=== PATIENT | female | born 1980 | race Caucasian/White ===

== ENCOUNTER 2022-12-25 02:03 | Outpatient (CLI) | payer BC, SELFPAY ==
--- NOTE | 2022-12-25 16:00 | DI.MAMMO_ITS ---
Exam(s) MAMMO SCREENING EXAM: MAMMO SCREENING CLINICAL HISTORY: PREVENTIVE [facility] Z00.00, SCREENING FOR BREAST CANCER. TECHNIQUE: Bilateral full field digital CC and MLO mammographic images were obtained with 3D tomosyn thesis and utilizing computer aided detection (CAD). COMPARISON: None. This is a baseline mammogram on this 42-year-old patient. FINDINGS: There are no CAD designations. There are no spiculated masses nor malignant appearing microcalcification groups. There is a small benign-appearing lymph node in the upper-outer quadrant of the right breast. There is no significant architectural distortion nor skin thickening-retraction. IMPRESSION: No radiographic evidence of malignancy. BI-RADS Category 2 - Benign Findings Breast Density - Category B - Scattered areas of fibroglandular density Breast density Category C or D implies that the patient has dense breast tissue. Dense breast tissue can make it harder to find cancer on a mammogram. Dense breast tissue is also associated with an incr eased risk of breast cancer. This information about the result of the mammogram report was provided to the patient to raise their awareness. Use this report when you speak with the patient about their risks for breast cancer, which includes their family history. At that time, you may recommend additional screening tests (Ultrasoun d or MRI) as these tests may add significant information. A negative radiographic report should not delay biopsy if a dominant or clinically suspicious mass is present. Up to ten percent of cancers are not identified on mammography. A negative report may reinforce clinical impression. Adenosis and dense breasts may obscure an underlying neoplasm. False positive reports average 6 to 10%. Patient will receive a letter notifying them of these results.
== END 2022-12-25 02:23 ==
PROVIDERS: Visit Provider Internal Medicine
DX: Z00.00 Encounter for general adult medical examination without abnormal findings (principal); Z12.31 Encounter for screening mammogram for malignant neoplasm of breast
CPT/HCPCS: 77063; 77067

== ENCOUNTER 2023-12-26 11:01 | Outpatient (REF) | payer BC, SELFPAY ==
[2023-12-26 19:21] LABS: Abs Immature Grans 0.01 10^3/uL (0.0-0.06); Absolute Basophil Count 0.05 10^3/uL (0.0-0.2); Absolute Eosinophil Count 0.16 10^3/uL (0.0-0.7); Absolute Lymphocyte Count 1.43 10^3/uL (1.2-3.4); Absolute Monocyte Count 0.57 10^3/uL (0.1-0.8); Absolute Neutrophil Count 4.41 10^3/uL (1.2-6.7); Basophils % 0.8; Eosinophils % 2.4; HCT 41.4 % (36.0-46.0); HGB 13.5 g/dL (11.2-15.7); Immature Grans % 0.2; Lymphocytes % 21.6; MCH 30.5 pg (27.0-33.0); MCHC 32.6 % (32.0-36.0); MCV 94 fL (80-95); MPV 11.4 fL (8.0-11.0); Monocytes % 8.6; Neutrophils % 66.4; Platelet Count 257 10^3/uL (130-400); RBC 4.42 10^6/uL (3.93-5.22); RDW 12.3 % (11.7-14.6); RDW-SD 42.6 fL; WBC 6.63 10^3/uL (4.4-10.8)
[2023-12-26 19:47] LABS: Iron 74 ug/dL (50-170); Total Iron Binding Capacity 334 ug/dL (250-450); Transferrin Sat 22 % (15-50)
[2023-12-26 20:10] LABS: Hemoglobin A1C 5.3 % (<5.7)
[2023-12-26 20:14] LABS: Vitamin D 25 Total 31.1 ng/mL (30-100)
[2023-12-26 21:10] LABS: ALT 25 U/L (14-59); AST 16 U/L (15-37); Albumin 3.7 g/dL (3.4-5.0); Alkaline Phosphatase 45 U/L (46-116); BUN 10 mg/dL (7-18); Bilirubin, Total 0.4 mg/dL (0.2-1.0); CREATININE 0.8 mg/dL (0.55-1.02); Chloride 104 mmol/L (98-107); Estimated GFR 92.54 (mL/min/1.73m2); Ferritin 27 ng/mL (8-252); Glucose 91 mg/dL (74-106); Potassium 4.5 mmol/L (3.5-5.1); Sodium 138 mmol/L (136-145); TSH (W/Ref FT4) 1.77 uIU/mL (0.36-3.74); Total Protein 6.9 g/dL (6.4-8.2); Vitamin B12 433 pg/mL (193-986)
== END 2023-12-26 11:02 | disposition home or self-care (01) ==
LOC: NCHCN 11:01
PROVIDERS: PCP Nurse Practitioner Family; Visit Provider Physician Assistant
DX: R53.83 Other fatigue (principal)
CPT/HCPCS: 80053; 82306; 82607; 82728; 83036; 83540; 83550; 84443; 85025

== ENCOUNTER 2024-02-04 17:41 | Outpatient (REF) | payer BC, SELFPAY ==
--- NOTE | 2024-02-04 16:00 | PAPFT_PTH ---
PATIENT: Nuvia Solares LOC: [facility]#:[id number] AGE/SX: 43/F ROOM: RE02/04/[address]: Linda Kaur : 1980 BED: DIS: 02/04/2024 SPEC #: [id number] RECD: 02/05/24 13:10 STATUS: VANDANA RESujatha #: [id number] FER: 02/04/24 16:[address]: Linda Kaur DEPT: [facility] Cytology RECD BY: Nisha Guerra ENTERED: 02/05/24 13:11 SP TYPE: PAPFT OTHR DR: Elias Lucero Tissues: 1 - CX/ENDOCX FOR PAP SMEARS Procedures: PAP THIN PREP/UVM Screening HPV DNA PROBE Comments: [id number]
== END 2024-02-04 17:42 | disposition home or self-care (01) ==
LOC: NCHCN 17:41
PROVIDERS: PCP Nurse Practitioner Family; Visit Provider Physician Assistant
DX: Z12.4 Encounter for screening for malignant neoplasm of cervix (principal); Z11.51 Encounter for screening for human papillomavirus (HPV)
CPT/HCPCS: 88142; 87624

== ENCOUNTER 2025-06-15 02:40 | Outpatient (CLI) | payer BC, SELFPAY ==
--- NOTE | 2025-06-15 | DI.MAMMO_ITS ---
Exam(s) MAMMO SCREENING EXAM: MAMMO SCREENING CLINICAL HISTORY: Screening, Z12.31; family h/o breast CA TECHNIQUE: Bilateral full field digital CC and MLO mammographic images were obtained with 3D tomosynthesis and utilizing computer aided detection (CAD). COMPARISON: Comparison is made with prior examinations. FINDINGS: Masses/Architectural Distortion: There is a new 6 mm nodule in the outer left breast 5.5 cm from the nipple. It is in the upper quadrant of the left breast on the MLO view. There are no areas of architectural distortion. Microcalcifications: No suspicious pleomorphic-type are seen. Skin Thickening/Nipple Retraction: None. IMPRESSION: 1. New 6 mm nodule in the upper outer quadrant of the left breast. 2. This should be further evaluated with spot compression views. Ultrasound may be indicated at that time. BI-RADS Category 0 - Incomplete: Need additional imaging evaluation Breast Density - Category B - There are scattered areas of fibroglandular density. Breast density Category C or D implies that the patient has dense breast tissue. Dense breast tissue can make it harder to find cancer on a mammogram. Dense breast tissue is also associated with an increased risk of breast cancer. This information about the result of the mammogram report was provided to the patient to raise their awareness. Use this report when you speak with the patient about their risks for breast cancer, which includes their family history. At that time, you may recommend additional screening tests (Ultrasound or MRI) as these tests may add significant information. A negative radiographic report should not delay biopsy if a dominant or clinically suspicious mass is present. Up to ten percent of cancers are not identified on mammography. A negative report may reinforce clinical impression. Adenosis and dense breasts may obscure an underlying neoplasm. False positive reports average 6 to 10%. Patient will receive a letter notifying them of these results.
== END 2025-06-15 03:00 ==
PROVIDERS: PCP Nurse Practitioner Family; Visit Provider Physician Assistant
DX: Z12.31 Encounter for screening mammogram for malignant neoplasm of breast (principal); R92.323 Mammographic fibroglandular density, bilateral breasts
CPT/HCPCS: 77063; 77067

== ENCOUNTER 2025-06-18 00:21 | Outpatient (CLI) | payer BC, SELFPAY ==
--- NOTE | 2025-06-18 | DI.MAMMO_ITS ---
Exam(s) MG MAMMO SCREEN CALL BACK UNI US BREAST LT COMPLETE EXAM: MG MAMMO SCREEN CALL BACK UNI-LEFT BREAST ULTRASOUND CLINICAL HISTORY: NEW 6 MM NODULE UPPER OUTER QUAD LEFT BREAST R92.8 ABNL MAMMO. TECHNIQUE: Unilateral LEFT BREAST spot mammographic images obtained with 3D tomosynthesisand utilizing computer aided detection (CAD). . Complete LEFT breast Ultrasound was also performed, including all 4 quadrants, the retroareolar region, and the ipsilateral axilla. COMPARISON: Prior mammograms were reviewed. This additional imaging was performed due to findings described on the recent screening mammogram of 06/15/2025. FINDINGS: DIAGNOSTIC MAMMOGRAM: Additional mammographic views performed todayrender this area less concerning. COMPLETE LEFT BREAST ULTRASOUND: Ultrasound performed today reveals a small benign-appearing finding at the 1 o'clock position which measures 4 x 2 mm wider than taller. Is difficult to determine this just part of her fibroglandular tissue pattern or small benign- appearing nodule such as hemorrhagic microcyst. 3 o'clock position measuring approximately 4 x 2 mm. It is difficult to determine if this is just part of her fibroglandular tissue or small benign- appearing nodular hemorrhagic microcyst.. There are no other focal ultrasound findings in all 4 quadrants of the left breast. Scanning of the ipsilateral axilla reveals no significant adenopathy. IMPRESSION: 1. Benign-appearing findings at the 1 o'clock and 3 o'clock positions as described above. One of these may or may not correspond to the finding described on the recent screening mammogram (which is less impressive on spot compression 3D mammographic spot view today). The patient forms me that she has a strong family history of breast cancer. Appropriate follow-up is repeat left breast imaging in 6 months, this to include repeat left breast mammogram and ultrasound. The patient was informed of these findings and recommendations by myself prior to leaving the department today. BI-RADS Category 3 - 6 month - Probably Benign Finding: Recommend follow-up mammography in 6 months Breast Density - Category B - There are scattered areas of fibroglandular density. Breast density Category C or D implies that the patient has dense breast tissue. Dense breast tissue can make it harder to find cancer on a mammogram. Dense breast tissue is also associated with an increased risk of breast cancer. This information about the result of the mammogram report was provided to the patient to raise their awareness. Use this report when you speak with the patient about their risks for breast cancer, which includes their family history. At that time, you may recommend additional screening tests (Ultrasound or MRI) as these tests may add significant information. A negative radiographic report should not delay biopsy if a dominant or clinically suspicious mass is present. Up to ten percent of cancers are not identified on mammography. A negative report may reinforce clinical impression. Adenosis and dense breasts may obscure an underlying neoplasm. False positive reports average 6 to 10%. Patient will receive a letter notifying them of these results.
== END 2025-06-18 00:41 ==
LOC: DI 00:21
PROVIDERS: PCP Nurse Practitioner Family; Visit Provider Physician Assistant
DX: Z12.31 Encounter for screening mammogram for malignant neoplasm of breast (principal); R92.8 Other abnormal and inconclusive findings on diagnostic imaging of breast; R92.323 Mammographic fibroglandular density, bilateral breasts
CPT/HCPCS: 76642; 77063; 77067

== ENCOUNTER 2025-08-15 07:20 | Emergency (ER) | payer BC, SELFPAY ==
[2025-08-15 07:27] VITALS: BP 145/77; PULSE 87; RESP 14; TEMP 37.2; O2SAT 98
--- NOTE | 2025-08-15 07:30 | DI.RAD_ITS ---
Exam(s) XR KNEE RT 3V AP,LAT,BEST EXAM: XR KNEE RT 3V AP,LAT,BEST CLINICAL HISTORY: Jumped off truck, pain R. knee. TECHNIQUE: 2D digital imaging was performed. COMPARISON: No exams were available for comparison FINDINGS: 3 views No evidence fracture but there is a joint effusion signifying internal derangement. Patella appears slightly lateral. No joint space narrowing. IMPRESSION: As above. Suspect internal derangement because of the presence of moderate size joint effusion in the knee. Consider MRI. DATA REPOSITORY: RADIATION DOSE DELIVERED:
[2025-08-15] MEDS: Acetaminophen 500 MG TAB 1000 MG PO (07:45)
[2025-08-15] MEDS: Ibuprofen 600 MG TAB PO (07:45)
--- NOTE | 2025-08-15 08:14 | ED.GENADUL_ITS ---
Discharge Plan Disposition Patient Disposition: Home Condition: Stable Discharge Details Clinical Impression: Internal derangement of right knee Primary Care Provider: Sho Lucero ED Provider: Rahel Zavala Home Meds and New Rx's Prescriptions: No Action No Known Home Meds Discharge Instructions Instructions: Internal Derangement of the Knee (DC) Additional Instructions: You were seen in the emergency department today for evaluation of a right knee injury. In our department a full physical examination performed and had x-ray imaging that did not show any obvious large fractures. We are most concerned for injury to the ligaments in your knee, and have placed you in a knee immobilizer and provided you with crutches. You will be contacted if the final radiology report of your x-ray shows any other findings. Please use therapeutic dosing of Tylenol (acetaminophen) & Advil (ibuprofen) in an alternating fashion as follows: Take 1000mg of Tylenol every 6 hours without missing doses- that is 4 times per day. Retirement in between the Tylenol doses, take 600mg of Advil also on a 6 hour schedule, that is also 4 times per day. With this strategy, you will be taking something for fever/pain as often as every 3 hours. The daily maximum dosing of Tylenol is 4000mg, and the daily maximum dosing of Advil is 2400mg. Please note that some common cold medications & prescription pain medications may contain acetaminophen and you need to read OTC drug labels and factor that in to maximum daily doses. Please contact your primary care provider or the orthopedic doctor in your preferred hospital system directly, as you should be reevaluated for this injury within the next 1 to 2 weeks. They will likely want to do a new exam and potentially some imaging such as MRI to better evaluate the ligaments. Please wear the brace when you are up and about, and use the crutches to help you walk. Reasons to return to the emergency department sooner include a loss of sensation, strength, or ability to move your right foot, fevers or chills, sudden severe change or worsening of pain, or any other symptoms that cause you concern. Please follow-up with your primary care provider in the next few days to discuss this visit and any symptoms that change, worsen, or persist. Thank you for allowing us to be part of your care. Discharge Data Discharge Date/Time-TO BE ENTERED AT DEPARTURE: 08/15/25 09:06 HPI General Mode of arrival: wheelchair . Date/Time Provider Initiated Documentation: 08/15/25 07:28 . Limitations to Documentation: no limitations . Information obtained by: patient and old records reviewed . HPI Narrative: This is a 45-year-old female patient without significant past medical history presenting for evaluation of right knee injury. The patient reports that last night she jumped out of the bed of a pickup truck, states that she think she landed wrong with some twisting and had immediate pain in her right knee. The pain is located along the medial and lateral joint lines, is worse with attempting to stand or ambulate and she has had to crawl or had family member assistance to get around. She reports that she did not injure any other part of her body during this event. Denies numbness, tingling, or weakness distal to the injury. No overlying skin changes. No history of knee problems. Related Data Home Medications ?Medication ?Instructions ?Recorded ?Confirmed Unknown [No Known Home Meds] 08/15/25 0 08/15/25 Allergies Allergy/AdvReac Type Severity Reaction Status Date / Time No Known Allergies Allergy Unverified 08/15/25 07:32 General Stated Complaint: Orthopedic KAMALA: 4 Exam Narrative Exam Narrative: Gen: Awake and alert, in no apparent distress HEENT: Non-icteric sclera Neck: Supple Lungs: No apparent respiratory distress, normal respiratory effort. CV: Appears well perfused, strong distal pulses Abdomen: Non-distended MSK: Moves 4 extremities without apparent limitation in ROM with the exception of the right knee. The patient has no tenderness to palpation over the q uadriceps or patellar tendon, no defects palpable, patient is able to extend the knee against resistance. She does have reproduction of her pain with flexion of the knee, no fullness in the popliteal fossa is palpable. She does not have any significant laxity with varus or valgus stress testing but does have medial pain with stressing of the MCL. The patient's tenderness prevents tolerance of L achman's or anterior/posterior drawer test. Small palpable joint effusion compared to contralateral side. Full strength, sensation, and strong DP pulses distal to this injury, no calf tenderness or swelling. Skin: Visualized skin without rashes, cyanosis. Neuro: No obvious focal deficits or facial asymmetry. Speaks in full, clear sentences. Psych: Appropriate for situation. Course Vital Signs Vital signs: Vital Signs Temperature 37.2 C 08/15/25 07:27 Pulse 87 08/15/25 07:27 Respiratory Rate 14 08/15/25 07:27 Blood Pressure 145/77 H 08/15/25 07:27 Pulse Oximetry 98 08/15/25 07:27 Temperature 37.2 C 08/15/25 07:27 Temperature Source Oral 08/15/25 07:27 Pulse 87 08/15/25 07:27 Respiratory Rate 14 08/15/25 07:27 Blood Pressure 145/77 H 08/15/25 07:27 Blood Pressure Position Sitting 08/15/25 07:27 Pulse Oximetry 98 08/15/25 07:27 Oxygen Delivery Method Room Air 08/15/25 07:27 Oxygen Flow Rate 0 08/15/25 07:27 Pain Level 10 08/15/25 07:45 Comment 09/10 with weight bearing dull ache at rest 08/15/25 07:27 Medical Decision Making This is a 45-year-old female patient presenting for evaluation of a right knee injury. My differential includes but is not limited to fracture, dislocation, internal derangement/ligamentous injury, contusion. I am reassured based on the patient's lack of palpable defect and ability to extend against severe patellar or quadriceps tendon injury. No evidence for neurovascular derangement. The patient has not taken any medication since last night, I provided her with Tylenol, ibuprofen, and an ice pack. Will obtain an x-ray of the affected right knee. - X-ray independently interpreted by myself, showing no evidence of fracture, dislocation or other osseous abnormality. I am most concerned for a ligamentous injury and placed the patient in a knee immobilizer and provided her with crutches. She prefers to follow-up in the [facility] system, I advised that she contact orthopedics and her primary care to ensure that she can be reevaluated in the next 1 to 2 weeks. Disc with her images was provided. I counseled her on conservative management of pain and swelling, and at this time, the patient has had a full medical evaluation and is safe for discharge to home. They are hemodynamically stable, ambulatory, and tolerating PO. They are understanding of the follow-up plan and return precautions. They left our facility without incident. Rahel Zavala MD [facility] All Active Problems (Updated 08/15/25 @ 08:38 by Rahel Zavala MD) Internal derangement of right knee (Acute) Social History Smoking/Tobacco Use Status: Current-Occasional Smoking risk assessment performed?: Yes Alcohol Intake: current Drug use: Occasionally Substance use type: marijuana Housing: house Do you feel safe at home: Yes Do you feel safe in your relationship?: Yes
--- NOTE | 2025-08-15 09:33 | DI.VRAD_ITS ---
PROCEDURE INFORMATION: Exam: XR Right Knee Exam date and time: 08/15/2025 8:04 AM Age: 45 years old Clinical indication: Injury or trauma; Other: Jumped off truck, pain R. Knee; Sprain or strain; Patella or knee; Right TECHNIQUE: Imaging protocol: Radiologic exam of the right knee. Views: 3 views. COMPARISON: No relevant prior studies available. FINDINGS: Bones/joints: There is no evidence of acute fracture.There is no evidence of malalignment or dislocation. Mild suprapatellar joint effusion Soft tissues: Soft tissue swelling of the knee. IMPRESSION: There is no evidence of acute fracture.There is no evidence of malalignment or dislocation. Dictated and Authenticated by: Roni Fonseca MD. Orderin [facility] Lupillo Mcginnis MD
== END 2025-08-15 09:06 | disposition home or self-care (01) ==
PROVIDERS: Emergency Provider Emergency Medicine; PCP Nurse Practitioner Family
DX: M23.8X1 Other internal derangements of right knee (principal); M25.461 Effusion, right knee
CPT/HCPCS: 73562; 99283